=== PATIENT | female | born 1980 | race Caucasian/White ===

== ENCOUNTER 2020-06-19 17:59 | Emergency (ER) | payer SELFPAY ==
[~2020-06-19] VITALS: Ht 162.6 cm; Wt 61.3 kg
--- NOTE | 2020-06-19 18:51 | PHYS DOC ---
Past History Past Medical History: No Pertinent History Past Surgical History: Alcohol Use: Occasionally Adult General Chief Complaint Chief Complaint: BACK PAIN OR INJURY HPI HPI Patient is a 39-year-old female who presents with right elbow and right sided rib pain. States she was walking down some stairs, that were wet, slipped and fell on her right side injuring her elbow and right rib. States that the pains about 5 out of 10, sharp in nature, with no radiation. Denies any other injuries. Review of Systems Review of Systems Review of systems otherwise unremarkable except noted in HPI Allergies Allergies Allergies Coded Allergies Type Severity Reaction Last Updated Verified No Known Drug Allergies 06/19/20 No Physical Exam Physical Exam Constitutional: Well developed, well nourished, no acute distress, non-toxic appearance. [] Lungs & Thorax: Bilateral breath sounds clear to auscultation, right sided chest wall pain at rib sternal border just under right breast no bruising. [] Abdomen: soft, no tenderness, no masses, no pulsatile masses. [] Back: No tenderness, no CVA tenderness. [] Extremities: No tenderness, ROM intact Neurologic: Alert and oriented X 3, normal motor function, normal sensory function, no focal deficits noted. [] Psychologic: Affect normal, judgement normal, mood normal. [] Current Patient Data Vital Signs Vital Signs Date Time Temp Pulse Resp B/P (MAP) Pulse Ox O2 Delivery O2 Flow Rate FiO2 06/19/20 18:21 98.3 83 18 134/78 (96) 100 Room Air EKG EKG [] Radiology/Procedures Radiology/Procedures [] EXAM: Chest, 2 views. HISTORY: Fall. Pain. COMPARISON: None. FINDINGS: 2 views of the chest are obtained. There is no infiltrate, pleural effusion or pneumothorax. The heart is normal in size. There is a small nodular opacity overlying the right lower lobe which may be due to an overlying nipple shadow. IMPRESSION: 1. No acute pulmonary finding. 2. Small nodular opacity overlying the right lower lobe possibly due to a nipple shadow. Short-term follow-up to exclude a nodule in this location is recommended. Electronically signed by: Zita Eddy MD (06/19/2020 7:03 PM) [facility] EXAM: Right elbow, 3 views. HISTORY: Pain. Fall. COMPARISON: None. FINDINGS: 3 views of the right elbow are obtained. There is no fracture, dislocation or subluxation. There is no elbow effusion. IMPRESSION: No acute osseous finding. Electronically signed by: Zita Eddy MD (06/19/2020 7:05 PM) [facility] Heart Score C/O Chest Pain: N/A Risk Factors: Risk Factors: DM, Current or recent (<one month) smoker, HTN, HLP, family history of CAD, obesity. Risk Scores: Risk Factors: DM, Current or recent (<one month) smoker, HTN, HLP, family history of CAD, obesity. Course & Med Decision Making Course & Med Decision Making Patient is a 39-year-old female who presents after slipping on the stairs with right elbow and chest wall pain Vital signs not concerning. Physical exam noted above. Given Tylenol, ibuprofen and ice pack. Imaging of areas of concern with no acute osseous abnormalities. Discussed pain control at home. Advised to follow-up with primary care. Gave strict return precautions to the ED. Patient grateful, verbalized understanding and agreed with plan of discharge. [] Dragon Disclaimer Dragon Disclaimer This electronic medical record was generated, in whole or in part, using a voice recognition dictation system. Departure Departure: Impression: Primary Impression: Elbow pain Additional Impression: Chest wall pain Disposition: 01 HOME / SELF CARE / HOMELESS Condition: GOOD Referrals: PATRICIA CAO MD (PCP) Patient Instructions: RICE - Routine Care for Injuries Additional Instructions: Please read all the attached information. You can use Tylenol, ibuprofen and ice as needed at home for pain control. Please follow-up with your primary care physician as soon as you can to update on your ED visit and set up a follow-up as needed. Please come back to the ED with new or concerning symptoms. Problem Qualifiers RIAN HAWKINS MD Jun 19, 2020 18:51
[2020-06-19] MEDS ORDERED: ACETAMINOPHEN 500 MG TABLET PO ONE (19:00)
[2020-06-19] MEDS ORDERED: IBUPROFEN 600 MG TABLET. PO ONE (19:00)
--- NOTE | 2020-06-19 19:05 | RAD ---
EXAM: Chest, 2 views. HISTORY: Fall. Pain. COMPARISON: None. FINDINGS: 2 views of the chest are obtained. There is no infiltrate, pleural effusion or pneumothorax . The heart is normal in size. There is a small nodular opacity overlying the right lower lobe which may be due to an overlying nipple shadow. IMPRESSION: 1. No acute pulmonary finding. 2. Small nodular opacity overlying the right lower lobe possibly due to a nipple shadow. Short-term f ollow-up to exclude a nodule in this location is recommended. Electronically signed by: Zita Eddy MD (06/19/2020 7:03 PM) [place]
--- NOTE | 2020-06-19 19:07 | RAD ---
EXAM: Right elbow, 3 views. HISTORY: Pain. Fall. COMPARISON: None. FINDINGS: 3 views of the right elbow are obtained. There is no fracture, dislocation or subluxation. There is no elbow effusion. IMPRESSION: No acute osseous finding. Electronically signed by: Zita Eddy MD (06/19/2020 7:05 PM) [facility]
[2020-06-19 19:17] VITALS: BP 119/48
[2020-06-19] MEDS ORDERED: oxyCODONE IR 5 MG TABLET PO PRN (19:30)
== END 2020-06-19 19:37 | disposition home or self-care (01) ==
LOC: ER 17:59
DX: M25.521 Pain in right elbow (principal); R07.89 Other chest pain; G89.11 Acute pain due to trauma; W01.0XXA Fall on same level from slipping, tripping and stumbling without subsequent striking against object, initial encounter; Y93.01 Activity, walking, marching and hiking; Y92.89 Other specified places as the place of occurrence of the external cause; Y99.8 Other external cause status
CPT/HCPCS: 71046; 73080; 99284